=== PATIENT | male | born 1935 | race Two or more races ===

== ENCOUNTER 2017-03-02 12:09 | Inpatient (IN) | payer OTHER ==
[~2017-03-02] VITALS: Ht 152.4 cm; Wt 56.0 kg
[2017-03-02 13:14] LABS: EOSINOPHIL (%) 1.2 % (0-5); EOSINOPHIL COUNT 0.1 K/uL (0-0.3); HEMATOCRIT 38.3 % (38.0-50.0); IMMATURE GRANULOCYTE (%) 0.2 % (0.0-0.7); INSTRUMENT ABS NEUTROPHIL CT 3.1 K/uL; LYMPHOCYTE COUNT 1.3 K/uL (1.0-2.8); MCH 29.5 PG (29.0-34.0); MCHC 32.9 G/DL (30.0-36.0); MCV 89.7 FL (86-99); MEAN PLAT.VOLUME 11.8 uM^3 (9.0-12.4); MONOCYTE (%) 9.1 % (3-12); MONOCYTE COUNT 0.5 K/uL (0-0.8); NEUTROPHIL (%) 63.1 % (45-76); NEUTROPHIL COUNT 3.1 K/uL (1.8-6.4); PLATELET COUNT 206 K/uL (156-360); RBC DIS.WIDTH-CV 13.1 % (11.8-14.6); RBC DIS.WIDTH-SD 42.8 % (39-53); RED BLOOD COUNT 4.27 M/uL (4.00-5.50)
[2017-03-02 13:24] LABS: CHLORIDE 106 mEq/L (99-109); POTASSIUM 4.1 mEq/L (3.7-5.4); SODIUM 141 mEq/L (136-147)
[2017-03-02 13:26] LABS: GLUCOSE 132 mg/dL (70-99)
[2017-03-02 13:27] LABS: ANION GAP 11 MEQ/L (2-14)
[2017-03-02 13:28] LABS: TOTAL BILIRUBIN 0.4 mg/dL (0.0-1.0)
[2017-03-02 13:29] LABS: ALKALINE PHOSPHATASE 52 IU/L (3-129)
[2017-03-02 13:30] LABS: GFR ESTIMATE (CALCULATED) 52 mL/min/
[2017-03-02 13:31] LABS: UREA NITROGEN (BUN) 25 mg/dL (9-23)
[2017-03-02 13:33] LABS: CREATINE KINASE 82 IU/L (1-294); TOTAL CK 82 IU/L (1-294)
[2017-03-02 13:35] LABS: TROP-I INTERPRETATION NEGATIVE; TROPONIN-I < 0.01 ng/mL (0.0-0.30)
[2017-03-02 13:41] LABS: CK-MB 0.8 ng/mL (0.0-4.9)
[2017-03-02 15:30] LABS: ADD MIUA? NO; BILIRUBIN NEGATIVE; BLOOD NEGATIVE; COLOR YELLOW ((YELLOW)); GLUCOSE (STRIP) NEGATIVE; KETONES NEGATIVE; LEUKOCYTES NEGATIVE; NITRITE NEGATIVE; PROTEIN (STRIP) 30; UCUL ADDED? NO; UROBILINOGEN 0.2 MG/DL (0.2-1.0)
[2017-03-02 20:35] LABS: TROP-I INTERPRETATION NEGATIVE; TROPONIN-I 0.01 ng/mL (0.0-0.30)
[2017-03-03] VITALS (7 sets, daily range): BP systolic 133–193; BP diastolic 60–87
[2017-03-03 02:21] LABS: TROP-I INTERPRETATION NEGATIVE; TROPONIN-I 0.03 ng/mL (0.0-0.30)
[2017-03-03 06:58] LABS: HEMATOCRIT 40.2 % (38.0-50.0); MCH 29.1 PG (29.0-34.0); MCHC 32.8 G/DL (30.0-36.0); MCV 88.7 FL (86-99); MEAN PLAT.VOLUME 11.8 uM^3 (9.0-12.4); PLATELET COUNT 232 K/uL (156-360); RBC DIS.WIDTH-CV 13.1 % (11.8-14.6); RBC DIS.WIDTH-SD 42.7 % (39-53); RED BLOOD COUNT 4.53 M/uL (4.00-5.50)
[2017-03-03 07:09] LABS: ANION GAP 10 MEQ/L (2-14); CHLORIDE 104 MEQ/L (99-109); GFR ESTIMATE (CALCULATED) 56 mL/min/; GLUCOSE 106 mg/dL (70-99); LIPASE 19 U/L (1.0-51.0); POTASSIUM 4.1 MEQ/L (3.7-5.4); SAMPLE HEMOLYSIS CHECK 0; SAMPLE ICTERIC CHECK 0; SAMPLE LIPEMIA CHECK 0; SODIUM 139 MEQ/L (136-147); UREA NITROGEN (BUN) 23 mg/dL (9-23)
[2017-03-03 07:24] LABS: WHITE BLOOD COUNT 7.1 K/uL (4.1-10.2)
[2017-03-04 04:19] VITALS: BP 155/75
[2017-03-04 06:21] LABS: MCH 28.9 PG (29.0-34.0); MCHC 32.4 G/DL (30.0-36.0); MCV 89.2 FL (86-99); MEAN PLAT.VOLUME 11.5 uM^3 (9.0-12.4); PLATELET COUNT 211 K/uL (156-360); RBC DIS.WIDTH-CV 13.3 % (11.8-14.6); RBC DIS.WIDTH-SD 43.5 % (39-53); RED BLOOD COUNT 4.26 M/uL (4.00-5.50)
[2017-03-04 06:22] LABS: ANION GAP 12 MEQ/L (2-14); CHLORIDE 106 MEQ/L (99-109); GFR ESTIMATE (CALCULATED) 41 mL/min/; GLUCOSE 101 mg/dL (70-99); MAGNESIUM 2.3 mg/dl (1.3-2.7); POTASSIUM 3.6 MEQ/L (3.7-5.4); SAMPLE HEMOLYSIS CHECK 0; SAMPLE ICTERIC CHECK 0; SAMPLE LIPEMIA CHECK 0; SODIUM 142 MEQ/L (136-147); UREA NITROGEN (BUN) 22 mg/dL (9-23)
[2017-03-04 06:36] LABS: WHITE BLOOD COUNT 4.6 K/uL (4.1-10.2)
[2017-03-04 10:19] VITALS: BP 169/80
[2017-03-04 11:13] VITALS: BP 156/79
[2017-03-04 15:27] LABS: ADD MIUA? NO; BILIRUBIN NEGATIVE; BLOOD NEGATIVE; COLOR STRAW ((YELLOW)); GLUCOSE (STRIP) NEGATIVE; KETONES NEGATIVE; LEUKOCYTES NEGATIVE; NITRITE NEGATIVE; PROTEIN (STRIP) NEGATIVE; SPECIFIC GRAVITY 1.011 (1.000-1.030); UROBILINOGEN 0.2 MG/DL (0.2-1.0)
[2017-03-04 16:00] VITALS: BP 175/84
[2017-03-04 16:39] LABS: UR CREATININE CONCENTRATION 76.3 MG/DL; UR CREATININE CONCENTRATION 76.5 MG/DL
[2017-03-04 19:46] VITALS: BP 129/63
[2017-03-04 23:23] VITALS: BP 137/69
[2017-03-05 04:45] VITALS: BP 142/76
[2017-03-05 06:49] LABS: ANION GAP 11 MEQ/L (2-14); CHLORIDE 105 MEQ/L (99-109); GFR ESTIMATE (CALCULATED) 41 mL/min/; GLUCOSE 104 mg/dL (70-99); MAGNESIUM 2.3 mg/dl (1.3-2.7); POTASSIUM 4.1 MEQ/L (3.7-5.4); SAMPLE HEMOLYSIS CHECK 0; SAMPLE ICTERIC CHECK 0; SAMPLE LIPEMIA CHECK 0; SODIUM 140 MEQ/L (136-147); UREA NITROGEN (BUN) 26 mg/dL (9-23); URIC ACID 9.8 mg/dL (3.1-9.2)
[2017-03-05 10:01] VITALS: BP 167/88
[2017-03-05 12:01] VITALS: BP 157/84
[2017-03-05] MEDS ORDERED: NIFEDIPINE10 MG PO (13:47)
[2017-03-05] MEDS ORDERED: LABETALOL HCL200 MG PO (13:47)
[2017-03-05] MEDS ORDERED: LOSARTAN POTASS25 MG PO (13:47)
[2017-03-05] MEDS ORDERED: TYLENOL REGULA325 MG PO (13:47)
[2017-03-05] MEDS ORDERED: ASPIR-LOW81 MG PO (13:47)
[2017-03-05] MEDS ORDERED: FLAGYL500 MG PO (13:48)
== END 2017-03-05 15:59 | disposition home or self-care (01) | DRG 305 ==
LOC: EME 12:09 → 4EAST 18:52 → EDOF 18:52 → 4EAST 03-03 01:20
PROVIDERS: Emergency Medicine; Hospitalist; Internal Medicine Nephrology
DX: I16.0 Hypertensive urgency (principal); K05.30 Chronic periodontitis, unspecified; N17.9 Acute kidney failure, unspecified; R94.31 Abnormal electrocardiogram [ECG] [EKG]; I12.9 Hypertensive chronic kidney disease with stage 1 through stage 4 chronic kidney disease, or unspecified chronic kidney disease; N18.3 Chronic kidney disease, stage 3 (moderate); R07.9 Chest pain, unspecified; Z91.14 Patient's other noncompliance with medication regimen; M79.672 Pain in left foot; I73.9 Peripheral vascular disease, unspecified; J98.11 Atelectasis; N40.0 Benign prostatic hyperplasia without lower urinary tract symptoms; K80.20 Calculus of gallbladder without cholecystitis without obstruction
CPT/HCPCS: 70450; 71020; 71275; 73630; 80048; 80053; 80069; 81003; 82043; 82550; 82553; 82570; 83690; 83735; 84300; 84484; 84550; 85025; 85027; 93005; 93306; 93971; 93976; 99281; 99285; J0360; J1644